=== PATIENT | female | born 1980 | race Two or more races ===

== ENCOUNTER 2021-05-04 08:38 | Emergency (ER) | payer SELFPAY ==
[~2021-05-04] VITALS: Ht 165.1 cm; Wt 90.7 kg
[2021-05-04 11:02] VITALS: BP 114/54
== END 2021-05-04 11:21 | disposition home or self-care (01) ==
LOC: ER 08:38
DX: S05.11XA Contusion of eyeball and orbital tissues, right eye, initial encounter (principal); W01.0XXA Fall on same level from slipping, tripping and stumbling without subsequent striking against object, initial encounter; Y93.89 Activity, other specified; Y92.89 Other specified places as the place of occurrence of the external cause; Y99.8 Other external cause status
CPT/HCPCS: 70450

== ENCOUNTER 2022-04-04 18:20 | Emergency (ER) | payer MEDICAID, OTHER ==
[~2022-04-04] VITALS: Ht 165.1 cm; Wt 90.9 kg
[2022-04-04 19:58] LABS: Basophils # (auto) 0.1 10 ^3/uL (0-0.2); Basophils % (auto) 1.3 % (0.0-2.0); Eosinophils # (auto) 0.1 10 ^3/uL (0-0.8); Eosinophils % (auto) 2.2 % (0.0-7.0); Hematocrit 42.3 % (36.0-46.0); Hemoglobin 14.6 g/dL (12.2-16.2); Lymphocytes # (auto) 2.2 10 ^3/uL (0.4-5.4); Lymphocytes % (auto) 39.3 % (10.0-50.0); Mean Corpuscular Hemoglobin 32.5 pg (28.0-32.0); Mean Corpuscular Hgb Conc. 34.4 g/dL (32.0-36.0); Mean Corpuscular Volume 94.5 fL (80.0-100.0); Monocytes # (auto) 0.7 10 ^3/uL (0-1.3); Monocytes % (auto) 11.9 % (0.0-12.0); Neutrophils # (auto) 2.5 10 ^3/uL (1.6-8.6); Neutrophils % (auto) 45.3 % (37.0-80.0); Nucleated Red Blood Cells % 0.2 %; Red Blood Cells 4.48 10^6/uL (4.0-5.20); Red Cell Distribution Width 12.3 % (11.8-14.3); White Blood Cell 5.6 10^3/uL (4.4-10.8)
[2022-04-04 20:06] LABS: INR 0.92 (0.9-1.15); Partial Thromboplastin Time 27.6 sec (24.6-33.4)
[2022-04-04 21:07] LABS: Calcium 9.4 mg/dL (8.5-10.1); Magnesium 2.5 mg/dL (1.6-2.6); Potassium 3.3 mmol/L (3.5-5.1)
[2022-04-04 21:12] LABS: BUN/Creatinine Ratio 12.1; Bilirubin, Total 0.7 mg/dL (0.2-1.0); Total Protein 7.7 g/dL (6.4-8.2)
[2022-04-05 02:48] VITALS: BP 131/74
== END 2022-04-05 02:56 | disposition home or self-care (01) ==
LOC: ER 18:23
DX: R07.89 Other chest pain (principal)
CPT/HCPCS: 36415; 71045; 80053; 83735; 83880; 84443; 84484; 85025; 85610; 85730; 93005

== ENCOUNTER 2022-10-12 18:37 | Emergency (ER) | payer MEDICAID ==
[~2022-10-12] VITALS: Ht 167.6 cm; Wt 93.2 kg
[2022-10-12 20:09] LABS: Urine Bacteria NONE SEEN /hpf (None Seen); Urine Blood Negative /uL (Negative); Urine Mucus FEW (None Seen); Urine Specific Gravity 1.027 (1.001-1.035); Urine WBC 4 /hpf (0 - 5)
[2022-10-12] MEDS ORDERED: KETOROLAC TROMETH 60MG/2ML VIAL IM ONE (23:45)
[2022-10-12] MEDS ORDERED: CYCL-837 PO (23:46)
[2022-10-12] MEDS ORDERED: IBUP800T27 PO (23:46)
[2022-10-13 01:47] VITALS: BP 133/64
== END 2022-10-13 02:52 | disposition home or self-care (01) ==
LOC: ER 18:41
DX: S39.012A Strain of muscle, fascia and tendon of lower back, initial encounter (principal); Z79.1 Long term (current) use of non-steroidal anti-inflammatories (NSAID); Z79.899 Other long term (current) drug therapy; X50.1XXA Overexertion from prolonged static or awkward postures, initial encounter; Y93.89 Activity, other specified; Y92.89 Other specified places as the place of occurrence of the external cause; Y99.8 Other external cause status
CPT/HCPCS: 72100; 81001; 96372; 99284; J1885

== ENCOUNTER 2024-09-04 17:30 | Inpatient (IN) | payer MEDICAID ==
[~2024-09-04] VITALS: Ht 165.1 cm; Wt 95.7 kg
[~2024-09-04 17:30] MED LIST: CYCL-837 PO; IBUP-1456 PO
[2024-09-04] MEDS: ACETAMINOPHEN 325 MG TAB PO ONE (18:19)
--- NOTE | 2024-09-04 18:29 | ED.PDOC ---
History of Present Illness HPI Comments 44-year-old female with no PMHx presents with a chief complaint of abnormal vaginal bleeding, fever, and abdominal pain x 1 month. Patient states that her pain is localized to her suprapubic region, non-radiating, and describes as cramping. Patient mentions that she has been having abnormal vaginal bleeding since 08/10/2024. Patient reports that she has an IUD and does not know if that is the cause of her bleeding. Patient mentions that she is passing large clots vaginally. Patient is also reporting flu-like symptoms and has a fever currently of 100.7F. Chief Complaint: Vaginal Bleed Time Seen by MD: 18:19 Primary Care Provider: [facility] Reviewed Notes: Medications, Allergies Allergies: Coded Allergies: NO KNOWN ALLERGIES (Unverified , 05/04/21) Home Meds Active Scripts Ibuprofen (Ibuprofen) 800 Mg Tab, 1 TAB PO TID PRN, #30 TAB 0 Refills Prov:MALLORY DOWELL 10/12/22 Cyclobenzaprine Hcl (Cyclobenzaprine Hcl) 5 Mg Tab, 1 TAB PO QPM PRN, #14 TAB 0 Refills Prov:MALLORY DOWELL 10/12/22 Information Source: Patient, Relative (Child) Mode of Arrival: Ambulatory Severity: Moderate Timing: Weeks Duration: Intermittent Prehospital treatment: None Past Medical History PAST MEDICAL HISTORY: Denies Surgical History: COMIC ARTIST History: No Pertinent COMIC ARTIST History Family History Family History: Unknown Social History Smoker: Non-Smoker Alcohol: Denies ETOH Use Drugs: Denies Drug Use Lives In: Home Constitutional: reports: fever; denies: chills, diaphoresis, fatigue, malaise, sweats, weakness, others EENTM: denies: blurred vision, double vision, ear bleeding, ear discharge, ear drainage, ear pain, ear ringing, eye pain, eye redness, hearing loss, mouth pain, mouth swelling, nasal discharge, nose bleeding, nose congestion, nose pain, photophobia, tearing, throat pain, throat swelling, voice changes, others Respiratory: denies: cough, hemoptysis, orthopnea, SOB at rest, shortness of breath, SOB with excertion, stridor, wheezing, others Cardiovascular: denies: chest pain, dizzy spells, diaphoresis, Dyspnea on exertion, edema, irregular heart beat, left arm pain, lightheadedness, palpitations, PND, syncope, others Gastrointestinal: reports: abdominal pain; denies: abdomen distended, blood streaked bowels, constipated, diarrhea, dysphagia, difficulty swallowing, hematemesis, melena, nausea, poor appetite, poor fluid intake, rectal bleeding, rectal pain, vomiting, others Genitourinary: reports: abnormal vagina bleeding; denies: burning, dyspareunia, dysuria, flank pain, frequency, hematuria, incontinence, pain, , vagina discharge, urgency, others Neurological: denies: dizziness, fainting, headache, left sided numbness, left sided weakness, numbness, paresthesia, pre-existing deficit, right sided numbness, right sided weakness, seizure, speech problems, tingling, tremors, weakness, others Musculoskeletal: denies: back pain, gout, joint pain, joint swelling, muscle pain, muscle stiffness, neck pain, others Integumetry: denies: bruises, change in color, change in hair/nails, dryness, laceration, lesions, lumps, rash, wounds, others Allergic/Immunocompromised: denies: Difficulty Healing, Frequent Infections, Hives, Itching, others Hematologic/Lymphatic: denies: anemia, blood clots, easy bleeding, easy bruising, swollen glands, others Endocrine: denies: excessive hunger, excessive sweating, excessive thirst, excessive urination, flushing, intolerance to cold, intolerance to heat, unexplained weight gain, unexplained weight loss, others Psychiatric: denies: anxiety, bipolar disorder, depression, hopeless, panic disorder, schizophrenia, sleepless, suicidal, others All Other Systems: Reviewed and Negative Physical Exam General Appearance: Moderate Distress, Normal HEENT: Normal ENT Inspection, Pharynx Normal, TMs Normal Neck: Full Range of Motion, Non-Tender, Normal, Normal Inspection Respiratory: Chest Non-Tender, Lungs Clear, No Accessory Muscle Use, No Respiratory Distress, Normal Breath Sounds Cardiovascular: No Edema, No JVD, No Murmur, No Gallop, Normal Peripheral Pulses, Regular Rate/Rhythm Breast Exam: Deferred Gastrointestinal: No Organomegaly, Non Tender, No Pulsatile Mass, Normal Bowel Sounds, Soft Genitalia: Deferred Pelvic: Deferred Rectal: Deferred Extremities: No calf tenderness, Normal capillary refill, Normal inspection, Normal range of motion, Non-tender, No pedal edema Musculoskeletal : Apperance: Normal Neurologic: Alert, mobile manager II-XII nml as Tested, No Motor Deficits, Normal Affect, Normal Mood, No Sensory Deficits Cerebellar Function: Normal Reflexes: Normal Skin: Dry, Normal Color, Warm Lymphatic: No Adenopathy Was a procedure done? Was a procedure done?: No Differential Dx Considerations may include: Differential diagnosis includes but not limited to: Symptomatic anemia, coagulation defect, fibroid uterus, UTI, influenza, pyelonephritis, sepsis and others X-Ray, Labs, Meds, VS Vital Signs Date Time Temp Pulse Resp B/P (MAP) Pulse Ox O2 Delivery O2 Flow Rate FiO2 09/04/24 18:19 100.7 09/04/24 17:46 100.7 111 16 115/67 (83) 96 Lab Test 09/04/24 18:47 09/04/24 17:43 Range/Units White Blood Count 8.3 4.4-10.8 10^3/uL Red Blood Count 2.90 L 4.0-5.20 10^6/uL Hemoglobin 8.3 L 12.2-16.2 g/dL Hematocrit 25.2 L 36.0-46.0 % Mean Corpuscular Volume 86.8 80.0-100.0 fL Mean Corpuscular Hemoglobin 28.8 28.0-32.0 pg Mean Corpuscular Hemoglobin Concent 33.1 32.0-36.0 g/dL Red Cell Distribution Width 14.3 11.8-14.3 % Platelet Count 295 140-450 10^3/uL Mean Platelet Volume 8.5 6.9-10.8 fL Neutrophils (%) (Auto) 69.8 37.0-80.0 % Lymphocytes (%) (Auto) 20.4 10.0-50.0 % Monocytes (%) (Auto) 9.3 0.0-12.0 % Eosinophils (%) (Auto) 0.2 0.0-7.0 % Basophils (%) (Auto) 0.3 0.0-2.0 % Neutrophils # (Auto) 5.8 1.6-8.6 10 ^3/uL Lymphocytes # (Auto) 1.7 0.4-5.4 10 ^3/uL Monocytes # (Auto) 0.8 0-1.3 10 ^3/uL Eosinophils # (Auto) 0 0-0.8 10 ^3/uL Basophils # (Auto) 0 0-0.2 10 ^3/uL Nucleated Red Blood Cells 0.0 % Beta HCG, Quantitative 1.0 L 1.5-4.2 mIU/mL Urine Color Colorless Yellow Urine Clarity Turbid H Clear Urine pH 6.0 5.0-9.0 Urine Specific [place] 1.011 1.001-1.035 Urine Protein Trace H Negative Urine Ketones 1+ H Negative Urine Blood 3+ H Negative /uL Urine Nitrite 2+ H Negative Urine Bilirubin Negative Negative Urine Urobilinogen Normal Negative mg/dL Urine Leukocyte Esterase 1+ Negative /uL Urine RBC 334 0 - 4 /hpf Urine WBC 17 0 - 5 /hpf Urine Squamous Epithelial Cells Few <5 /hpf Urine Bacteria Few H None Seen /hpf Urine Mucus Few None Seen Urine Glucose Normal Normal mg/dL Current Medications Medications (Trade) Dose Ordered Sig/Branden Route Start Time Stop Time Status Last Admin Acetaminophen (Tylenol Tablet) 650 mg ONCE ONCE PO 09/04/24 18:15 09/04/24 18:16 DC 09/04/24 18:19 Time of 1ST Reevaluation: 18:49 Reevaluation 1ST: Unchanged Time of 2ND Reevaluation: 20:38 Reevaluation 2ND: Unchanged Patient Education/Counseling: Diagnosis, Treatment, Prognosis Family Education/Counseling: No Family Present Departure 1 Departure Time of Disposition: 20:38 (will admit for UTI with fever, dysfunctional ut erine bleeding with symptomatic anemia) Impression: Primary Impression: Dysfunctional uterine bleeding Additional Impressions: Symptomatic anemia UTI (urinary tract infection) Disposition: ADMITTED INPATIENT Condition: Guarded Critical Care Note Critical Care Time?: No Stability Stability form required: No I personally scribed for LOIS ROWE MD ([email or web address]) on 09/04/24 at 18:29. Electronically submitted by Keenan Clemons ([email or web address]). LOIS ROWE MD Sep 04, 2024 18:29
[2024-09-04 18:35] LABS: Urine Bacteria FEW /hpf (None Seen); Urine Blood 3+ /uL (Negative); Urine Clarity Turbid (Clear); Urine Color Colorless (Yellow); Urine Mucus FEW (None Seen); Urine Protein, UAD TRACE (Negative); Urine Specific Gravity 1.011 (1.001-1.035); Urine Squamous Epithelial Cell FEW /hpf (<5); Urine Urobilinogen Normal (Negative); Urine WBC 17 /hpf (0 - 5)
[2024-09-04 19:10] LABS: Basophils # (auto) 0 10 ^3/uL (0-0.2); Basophils % (auto) 0.3 % (0.0-2.0); Eosinophils # (auto) 0 10 ^3/uL (0-0.8); Eosinophils % (auto) 0.2 % (0.0-7.0); Hematocrit 25.2 % (36.0-46.0); Hemoglobin 8.3 g/dL (12.2-16.2); Lymphocytes # (auto) 1.7 10 ^3/uL (0.4-5.4); Lymphocytes % (auto) 20.4 % (10.0-50.0); Mean Corpuscular Hemoglobin 28.8 pg (28.0-32.0); Mean Corpuscular Hgb Conc. 33.1 g/dL (32.0-36.0); Mean Corpuscular Volume 86.8 fL (80.0-100.0); Monocytes # (auto) 0.8 10 ^3/uL (0-1.3); Monocytes % (auto) 9.3 % (0.0-12.0); Neutrophils # (auto) 5.8 10 ^3/uL (1.6-8.6); Neutrophils % (auto) 69.8 % (37.0-80.0); Platelet Count (auto) 295 10^3/uL (140-450); Red Cell Distribution Width 14.3 % (11.8-14.3); White Blood Cell 8.3 10^3/uL (4.4-10.8)
[2024-09-04] MEDS ORDERED: cefTRIAXone 2GM/50ML D5W 50 ML IV ONE (20:45)
[2024-09-04] MEDS: SODIUM CHLORIDE 0.9% 1,000 ML IV ONE (21:35)
[2024-09-04] MEDS: cefTRIAXone 1GM/50ML D5W 50 ML IV ONE (21:37)
[2024-09-04 21:42] VITALS: PULSE 85; RESP 20; O2SAT 96
[2024-09-05] VITALS (11 sets, daily range): BP systolic 110–122; BP diastolic 49–64; PULSE 83–96; RESP 16–24; TEMP 97.7–99.7; O2SAT 95–100
[2024-09-05 01:23] LABS: COVID19 ANTIGEN SOFIA FIA NEGATIVE (NEGATIVE)
[2024-09-05 01:25] LABS: Rapid Influenza A Positive (Negative); Rapid Influenza B Negative (Negative)
[2024-09-05] MEDS: ACETAMINOPHEN 325 MG TAB PO PRN (04:55)
[2024-09-05] MEDS: OSELTAMIVIR 75 MG CAP PO ONE (05:17)
[2024-09-05] MEDS: SODIUM CHLORIDE 0.9% 1,000 ML IV SCH (05:19)
--- NOTE | 2024-09-05 07:08 | DVH ---
CLINICAL HISTORY: Abnormal uterine bleeding COMPARISON: None TECHNIQUE: Transabdominal grayscale sonographic imaging of the uterus and ovaries was performed, assi sted by color Doppler technique. Duplex Doppler ultrasound of both ovaries was also performed. Patien t refused transvaginal imaging. FINDINGS: The uterus measures 11.9 x 5.3 x 4.5 cm. There is heterogeneous echogenicity. Endometrial t hickness measures 0.3 cm, within normal limits. IUD abnormally positioned in the lower uterine segmen t. Cervical mass measures 6.5 x 5.2 x 4.2 cm, heterogeneously hypoechoic, with internal vascular kenneth w demonstrated. Right ovary measures 3.0 x 1.6 x 1.9 cm. Arterial and venous blood flow demonstrated. Left ovary is not visualized. IMPRESSION: 1. Heterogeneously hypoechoic mass in the cervix, suspicious for malignancy. Correlation with clinica l findings recommended. MRI may be helpful to further characterize. 2. Abnormally positioned IUD within the lower uterine segment/ cervix.
--- NOTE | 2024-09-05 09:04 | DVHINCON2 ---
DATE OF CONSULTATION: 09/05/2024 CHIEF COMPLAINT: Abnormal uterine bleeding, cervical mass. HISTORY OF PRESENT ILLNESS: The patient is a 44-year-old 4, para 4, admitted for abnormal uterine bleeding. The patient has been reporting heavy bleeding since 6 months ago. She states she had a Pap smear last month, which was normal. She has been bleeding heavy. Ultrasound reveals 11.9 x 5 x 4.5 cm uterus with some suspicious mass at the cervix. PAST MEDICAL HISTORY: None. PAST SURGICAL HISTORY: x 1. SOCIAL HISTORY: None. FAMILY HISTORY: None. OBSTETRIC AND GYNECOLOGIC HISTORY: Three vaginal deliveries, one section. REVIEW OF SYSTEMS: Consistent with HPI. PHYSICAL EXAMINATION: VITAL SIGNS: Stable, afebrile. HEENT: Within normal limits. CARDIOVASCULAR: Regular rate and rhythm. LUNGS: Clear to auscultation. BREASTS: Symmetrical. No masses. ABDOMEN: Soft, nontender. PELVIC: External genitalia within normal limits. Speculum exam reveals prolapsing myoma through the cervix. Uterus 11-week size. Adnexa nonpalpable. EXTREMITIES: No clubbing, cyanosis or edema. IMPRESSION: Abnormal uterine bleeding with anemia. Prolapsing myoma. PLAN: D and C, hysteroscopy, removal of myoma. The patient will need blood transfusion. The patient is consented for the procedure. We will proceed with D and C, hysteroscopy and blood transfusion. Informed consent obtained. Risks, complication of surgery including infection, failure rate, bleeding, PE, DVT, risk of anesthesia discussed with the patient. Options reviewed. All questions were answered. The patient fully understands. She wishes to proceed with planned procedure. DO MELECIO Horowitz TID: [id number] RECEIPT: [id number]
[2024-09-05 09:32] LABS: Basophils # (auto) 0 10 ^3/uL (0-0.2); Basophils % (auto) 0.3 % (0.0-2.0); Eosinophils # (auto) 0 10 ^3/uL (0-0.8); Hemoglobin 7.7 g/dL (12.2-16.2); Mean Corpuscular Hemoglobin 28.8 pg (28.0-32.0); Monocytes # (auto) 0.6 10 ^3/uL (0-1.3); Red Blood Cells 2.66 10^6/uL (4.0-5.20)
[2024-09-05 09:35] LABS: Eosinophils % (auto) 0.2 % (0.0-7.0); Hematocrit 23.1 % (36.0-46.0); Lymphocytes # (auto) 2.3 10 ^3/uL (0.4-5.4); Mean Corpuscular Hgb Conc. 33.3 g/dL (32.0-36.0); Mean Corpuscular Volume 86.7 fL (80.0-100.0); Monocytes % (auto) 11.6 % (0.0-12.0); Neutrophils # (auto) 2.3 10 ^3/uL (1.6-8.6); Neutrophils % (auto) 43.9 % (37.0-80.0); Nucleated Red Blood Cells % 0.1 %; Platelet Count (auto) 258 10^3/uL (140-450); Red Cell Distribution Width 14.2 % (11.8-14.3); White Blood Cell 5.3 10^3/uL (4.4-10.8)
--- NOTE | 2024-09-05 09:41 | DVHHPRES ---
History of Present Illness Resident Creating Document: NANCY DUMONT RESIDENT History of Present Illness Patient is a 44-year-old female with no significant past medical history came the ED with a chief complaint of abnormal vaginal bleeding for past 6 months. Patient reports that about 6-7 months ago she started to have vaginal bleeding after every menstrual cycle which would last for about 10-15 days and was irregular in pattern. Patient also reports since the last 2-3 months she has been passing blood clots. Patient reports to have copper containing IUD in place. Reports mild pelvic pain when she is bleeding and has intermittent dizziness. Patient has had 4 pregnancies and 4 children with 3 normal vaginal deliveries and 1 C section. Patient was sexually active and denies dyspareunia. Patient reports that her last Pap smear was this year and was normal. Patient seek medical attention previously with OBGYN and was told that she has a "fibroma". Past medical history: None Past surgical history: 1 Social history: Patient was with family and denies smoking, alcohol, drug use OBGYN: 4 pregnancies with 3 vaginal deliveries and 1 C section Home medications: None Review of Systems Review of Systems Reports mild pelvic pain and is currently having bleeding per vagina with clots Denies dysuria Denies dizziness, shortness of breath, palpitations. Allergies: Coded Allergies: NO KNOWN ALLERGIES (Unverified , 05/04/21) Medications Current Medications Medications Dose Ordered Sig/Branden Route Start Time Stop Time Status Last Admin Dose Admin Acetaminophen 650 mg Q6HPRN PRN PO 09/05/24 04:45 09/05/24 04:55 650 MG Ceftriaxone Sodium 50 ml @ 100 mls/hr DAILY@2200 IV 09/05/24 22:00 Oseltamivir Phosphate 75 mg Q12HR PO 09/05/24 17:00 09/10/24 16:59 UNV Sodium Chloride 1,000 ml @ 125 mls/hr Q8H IV 09/05/24 05:00 09/05/24 05:19 125 MLS/HR Exam Vital Signs Vital Signs Date Time Temp Pulse Resp B/P (MAP) Pulse Ox O2 Delivery O2 Flow Rate FiO2 09/05/24 08:00 81 09/05/24 07:30 99.1 24 110/54 (72) 98 99.1 09/05/24 07:30 Room Air* 0 21 Exam Physical Examination Constitutional: Patient was alert and oriented to time, place and person and does not appear to be in any acute distress Gen - mild conjunctival pallor, no icterus, no cyanosis, no clubbing, no LAD, no edema . Skin - Patients skin is warm and dry. HEENT - normocephalic, atraumatic, dry mucous membranes. Neck - full ROM, no LAD, no JVD Pulmonary - B/L vesicular breath sounds. no crackles , no wheezing cardiovascular - normal S1,S2 heard. no murmurs heard. peripheral pulses normal radial 2+, pedal 2+. GI/- soft abdomen with mild tenderness to palpation in the mid lower abdomen above pubic symphysis. No mass felt in the suprapubic area. no hepatospleenomegaly. Bowel sounds normoactive Neurological - Bilateral upper extremity strength 5/5, bilateral lower extremity strength 5/5, no facial droop, normal speech, no tremor, no sensory deficiets. Labs/Xrays Labs Test 09/05/24 00:07 09/04/24 20:49 09/04/24 18:47 09/04/24 17:43 Range/Units Influenza Type A Antigen Positive Negative Influenza Type B Antigen Negative Negative SARS-CoV-2 Antigen (Rapid) Negative NEGATIVE Lactic Acid Level 1.2 0.4-2.0 mmol/L White Blood Count 8.3 4.4-10.8 10^3/uL Red Blood Count 2.90 L 4.0-5.20 10^6/uL Hemoglobin 8.3 L 12.2-16.2 g/dL Hematocrit 25.2 L 36.0-46.0 % Mean Corpuscular Volume 86.8 80.0-100.0 fL Mean Corpuscular Hemoglobin 28.8 28.0-32.0 pg Mean Corpuscular Hemoglobin Concent 33.1 32.0-36.0 g/dL Red Cell Distribution Width 14.3 11.8-14.3 % Platelet Count 295 140-450 10^3/uL Mean Platelet Volume 8.5 6.9-10.8 fL Neutrophils (%) (Auto) 69.8 37.0-80.0 % Lymphocytes (%) (Auto) 20.4 10.0-50.0 % Monocytes (%) (Auto) 9.3 0.0-12.0 % Eosinophils (%) (Auto) 0.2 0.0-7.0 % Basophils (%) (Auto) 0.3 0.0-2.0 % Neutrophils # (Auto) 5.8 1.6-8.6 10 ^3/uL Lymphocytes # (Auto) 1.7 0.4-5.4 10 ^3/uL Monocytes # (Auto) 0.8 0-1.3 10 ^3/uL Eosinophils # (Auto) 0 0-0.8 10 ^3/uL Basophils # (Auto) 0 0-0.2 10 ^3/uL Nucleated Red Blood Cells 0.0 % Beta HCG, Quantitative 1.0 L 1.5-4.2 mIU/mL Urine Color Colorless Yellow Urine Clarity Turbid H Clear Urine pH 6.0 5.0-9.0 Urine Specific [place] 1.011 1.001-1.035 Urine Protein Trace H Negative Urine Ketones 1+ H Negative Urine Blood 3+ H Negative /uL Urine Nitrite 2+ H Negative Urine Bilirubin Negative Negative Urine Urobilinogen Normal Negative mg/dL Urine Leukocyte Esterase 1+ Negative /uL Urine RBC 334 0 - 4 /hpf Urine WBC 17 0 - 5 /hpf Urine Squamous Epithelial Cells Few <5 /hpf Urine Bacteria Few H None Seen /hpf Urine Mucus Few None Seen Urine Glucose Normal Normal mg/dL Assessment/Plan Assessment/Plan # Abnormal uterine bleed # ? Uterine Fibroid # ? Cervical mass # normochromic normocytic anemia - pelvic ultrasound shows 1. uterus measures 11.9 x 5.3 x 4.5 cm. There is heterogeneous echogenicity. Endometrial thickness measures 0.3 cm, within normal limits. IUD abnormally positioned in the lower uterine segment. Cervical mass measures 6.5 x 5.2 x 4.2 cm, heterogeneously hypoechoic, with internal vascular flow demonstrated. 2. Right ovary measures 3.0 x 1.6 x 1.9 cm. Arterial and venous blood flow demonstrated. left ovary is not visualized. 3. Abnormally positioned IUD within the lower uterine segment/ cervix. - OBGYN consulted - PT PTT pending - monitor H&H # urinary tract infection likely acute cystitis # SIRS positive - UA shows 2+ nitrate, +LE, elevated WBCs and few bacteria - urine bacteria culture pending - blood culture pending - on ceftriaxone 1 g IV daily # influenza infection - no acute respiratory distress - on oseltamivir 75 mg q.12 hours p.o. Goals of care discussed with the patient for over 25 minutes. Full code Plan discussed with Dr. Fisher Plan discussed with: Patient My Orders Orders - NANCY DUMONT Procedure Category Date Status Time Acetaminophen Tablet PHA 09/05/24 In Process (Tylenol Tablet) 04:45 Admit ADMIT 09/05/24 Transmitted 04:59 Complete Blood Count LAB 09/05/24 Logged 04:59 Comprehensive LAB 09/05/24 Logged Metabolic Panel 04:59 Urine Bacterial JOANNE 09/05/24 Logged Culture 04:59 Drug Screen LAB 09/05/24 Logged 04:59 PTPTT LAB 09/05/24 Logged 04:59 Pelvic US 09/05/24 Resulted 04:59 Ceftriaxone 1gm/50ml PHA 09/05/24 In Process D5w (Rocephin) 22:00 Test, Urine LAB 09/05/24 Logged 04:59 Oseltamivir 75mg PHA 09/05/24 Pending Capsule (Tamiflu 75mg 17:00 Sodium Chloride 0.9% PHA 09/05/24 In Process 05:00 * Electric[employer] Consultation CONS 09/05/24 Transmitted 06:53 Regular Diet DIET 09/05/24 Transmitted Breakfast Date of Service: Sep 05, 2024 Billing Provider: OKSANA FISHER MD Common Visit Codes: [id number] INP/OBS CARE (HIGH) NANCY DUMONT RESIDENT Sep 05, 2024 09:41 OKSANA FISHER MD Sep 05, 2024 11:27
[2024-09-05 09:44] LABS: INR 1.06 (0.9-1.15); Partial Thromboplastin Time 27.6 SEC (24.5-34.5); Prothrombin Time 11.2 sec (9.3-11.8)
[2024-09-05 09:50] LABS: Alanine Aminotransferase 37 U/L (7-40); Alkaline Phosphatase 52 U/L (46-116); Anion Gap 8 (5-15); BUN/Creatinine Ratio 7.4 (10.0-20.0); Calcium 8.7 mg/dL (8.7-10.4); Carbon Dioxide 26 mmol/L (20-31); Glucose 99 mg/dL (74-106); Sodium 143 mmol/L (136-145)
[2024-09-05 09:51] LABS: Albumin 3.9 g/dL (3.2-4.8); Aspartate Aminotransferase 26 U/L (13-40); Bilirubin, Total 0.4 mg/dL (0.2-1.0)
[2024-09-05 10:01] LABS: Blood Urea Nitrogen 5 mg/dL (9-23); Chloride 109 mmol/L (98-107); Potassium 3.1 mmol/L (3.5-5.1)
[2024-09-05] MEDS: POTASSIUM EFFERVESENT TAB 25 MEQ PO ONE ×2 (15:41→21:30)
[2024-09-05] MEDS: OSELTAMIVIR 75 MG CAP PO SCH (17:41)
--- NOTE | 2024-09-05 18:02 | DVHPNRES ---
Progress Note Date Seen: Sep 05, 2024 Resident Creating Document: GEORGETTE KERN RESIDENT Medical Necessity Reason Pt with a Central, PICC or Fol: No Subjective Review of Systems 44-year-old female patient with no significant past medical history who presented to the emergency department with complaints of abnormal vaginal bleeding persisting for the past 6 months. She reports that about 7 months ago she began experiencing vaginal bleeding after each menstrual cycle lasting approximately 10 days to 15 days and described as irregular in pattern. Over the past 2-3 months she noted passage of blood clots during the episodes. The patient has a culprit containing intrauterine device in place. She despite male pelvic pain during bleeding episodes and intermittent dizziness. She denies dysuria, dyspareunia or other symptoms. She has had 4 pregnancies including 3 vaginal deliveries and 1 section. She reports being sexually active and denies any history of smoking alcohol or drug abuse. Patient underwent a normal Pap smear earlier this year and reports that her OBGYN previously mentioned the pieces of fibroma (likely a uterine myoma). OBGYN team has evaluated the patient, the schedule a hysteroscopy to evaluate the uterine cavity and plan for a dilation and curettage , and surgical removal of the myoma identified during prior evaluations. Patient just received 1 blood transfusion and no reactions were noted. Patient was tested for influenza, being positive, patient was started on oseltamivir 75 mg p.o. b.i.d. afterwards. Constitutional: yes: mild fever, Chills, Sweats, Weakness, Malaise, Other Eyes: No: Pain, Vision change, Conjunctivae inflammation, Eyelid inflammation, Other, Redness ENT: No: Ear pain, Ear discharge, Nose pain, Nose discharge, Nose congestion, Mouth pain, Mouth swelling, Throat pain, Throat swelling, Other Respiratory: No Wheezing, Hemoptysis, Pleuritic Pain, Sputum, Wheezing, Other Cardiovascular: No: Chest Pain, Palpitations, Orthopnea, Paroxysmal Noc. Dyspnea, Edema, Lt Headedness, Other Gastrointestinal: No: Nausea, Vomiting, Abdominal Pain, Diarrhea, Constipation, Melena, Hematochezia, Other Musculoskeletal: No: other, neck pain, shoulder pain, arm pain, back pain, hand pain, leg pain, foot pain Neurological:; No: Weakness, Numbness, Incoordination, Change in speech, Confusion, Seizures Patient reports: No new complaints Changes from previous H/P or p: No Changes Objective vital signs Vital Sign Date Time Temp Pulse Resp B/P (MAP) Pulse Ox O2 Delivery O2 Flow Rate FiO2 09/05/24 17:00 99.6 83 18 120/63 (82) 100 99.6 09/05/24 13:59 Room Air* 0 21 Total Intake and Output 09/04/24 09/04/24 09/05/24 15:00 23:00 07:00 Intake Total 1000 ml 50 ml Balance 1000 ml 50 ml medications Current Medications Medications Dose Ordered Sig/Branden Route Start Time Stop Time Status Last Admin Dose Admin Acetaminophen 650 mg Q6HPRN PRN PO 09/05/24 04:45 09/05/24 04:55 650 MG Ceftriaxone Sodium 50 ml @ 100 mls/hr DAILY@2200 IV 09/05/24 22:00 Oseltamivir Phosphate 75 mg Q12HR PO 09/05/24 17:00 09/10/24 16:59 Sodium Chloride 1,000 ml @ 125 mls/hr Q8H IV 09/05/24 05:00 09/05/24 15:42 125 MLS/HR Examination Examination General Appearance: Alert, Oriented X3, Cooperative, No acute distress Respiratory: Clear to auscultation, Normal air movement Cardiovascular: Regular rate, Normal S1, Normal S2 Abdominal: Normal bowel sounds Extremities: No cyanosis, No edema, Normal pulses, No tenderness/swelling Skin: No rashes, No breakdown Neuro: Normal gait, Normal speech, Strength at 5/5 X4 ext, Normal tone, Sensation intact, Cranial nerves 3-12 NL, Reflexes 2+ Psych/Mental Status: Mental status NL, Mood NL laboratory and microbiology Laboratory Tests 09/05/24 08:56 Test 09/05/24 08:56 Range/Units Serum Glucose 99 74-106 mg/dL Problem List/Assessment/Plan Problem List/Assessment/Plan # Abnormal uterine bleed likely due to uterine myoma - uterus measures 11.9 x 5.3 x 4.5 cm. There is heterogeneous echogenicity. Endometrial thickness measures 0.3 cm - Abnormally positioned IUD within the lower uterine segment/ cervix. - Right ovary measures 3.0 x 1.6 x 1.9 cm. - OBGYN on board - Surgical intervention, pending # normochromic normocytic anemia Hb:7.7 - pelvic ultrasound shows - 1 package of red blood cells were trasfused. - OBGYN consulted - monitor H&H # urinary tract infection likely acute cystitis # SIRS positive - urine bacteria culture pending - blood culture pending - on ceftriaxone 1 g IV daily # influenza infection - Oseltamivir 75 mg PO BID #Hypokalemia -potassium p.o. effervescent 50 MEQ # type 2 obesity, BMI 35.1 -Lifestyle modification counseling and dietary habits counseling Case discussed with Goals of care discussed with the patient for 31 minutes. code status: Full code Plan discussed with: Patient, Son CC Plasma Assessment Blood Product Administration S: [id number] Date of Service: Sep 05, 2024 Billing Provider: OTILIO NOVAK MD Common Visit Codes: [id number] INP/OBS CARE(HIGH) GEORGETTE KERN RESIDENT Sep 05, 2024 18:02 OTILIO NOVAK MD Sep 05, 2024 23:43
[2024-09-05 19:01] LABS: Hemoglobin 9.9 g/dL (12.2-16.2)
[2024-09-05 19:16] LABS: Potassium 3.3 mmol/L (3.5-5.1)
[2024-09-05] MEDS: cefTRIAXone 1GM/50ML D5W 50 ML IV SCH (21:30)
[2024-09-06 01:00] VITALS: BP 103/57; PULSE 83; RESP 17; TEMP 98.1; O2SAT 97
[2024-09-06 05:00] VITALS: BP 108/44; PULSE 76; RESP 16; TEMP 98.2; O2SAT 99
--- NOTE | 2024-09-06 07:16 | DVHPN2 ---
Chief Complaints Patient reports: No new complaints Nursing reports: No new complaints Objective Vitals Vital Signs Date Time Temp Pulse Resp B/P (MAP) Pulse Ox O2 Delivery O2 Flow Rate FiO2 09/06/24 05:00 98.2 76 16 108/44 (65) 99 98.2 09/05/24 20:00 Room Air* 0 21 Medications Current Medications Medications (Trade) Dose Ordered Sig/Branden Route PRN Reason Start Time Stop Time Status Last Admin Ceftriaxone Sodium 50 ml @ 100 mls/hr DAILY@2200 IV 09/05/24 22:00 09/05/24 21:30 Oseltamivir Phosphate (Tamiflu 75MG Capsule) 75 mg Q12HR PO 09/05/24 17:00 09/10/24 16:59 09/05/24 21:30 Studies Test 09/06/24 06:11 Range/Units Serum Glucose Pending Ass/Plan Assessment AUB DUE TO PROLAPSING MYOMA INFLUENZA A Plan WILL HOLD OFF SURGERY FOR NOW BC OF INFLUNZA A WILL SCHED PT FOR SURGERY IN COUPLE OF WEEKS ARIANNA THOMPSON DO Sep 06, 2024 07:16
[2024-09-06 07:26] LABS: Basophils # (auto) 0 10 ^3/uL (0-0.2); Basophils % (auto) 0.3 % (0.0-2.0); Eosinophils # (auto) 0.1 10 ^3/uL (0-0.8); Eosinophils % (auto) 2.4 % (0.0-7.0); Hematocrit 26.3 % (36.0-46.0); Hemoglobin 8.9 g/dL (12.2-16.2); Lymphocytes # (auto) 2.4 10 ^3/uL (0.4-5.4); Lymphocytes % (auto) 49.4 % (10.0-50.0); Mean Corpuscular Hemoglobin 29.5 pg (28.0-32.0); Mean Corpuscular Hgb Conc. 33.8 g/dL (32.0-36.0); Mean Corpuscular Volume 87.1 fL (80.0-100.0); Monocytes # (auto) 0.4 10 ^3/uL (0-1.3); Monocytes % (auto) 8.8 % (0.0-12.0); Neutrophils # (auto) 1.9 10 ^3/uL (1.6-8.6); Neutrophils % (auto) 39.1 % (37.0-80.0); Nucleated Red Blood Cells % 0.1 %; Platelet Count (auto) 259 10^3/uL (140-450); Red Blood Cells 3.02 10^6/uL (4.0-5.20)
[2024-09-06 07:44] LABS: Anion Gap 7 (5-15); Carbon Dioxide 27 mmol/L (20-31); Sodium 144 mmol/L (136-145)
[2024-09-06] MEDS ORDERED: FER325T PO (07:45)
[2024-09-06] MEDS ORDERED: TAMIFLU PO (07:45)
[2024-09-06 07:49] LABS: Glucose 94 mg/dL (74-106)
[2024-09-06 07:56] LABS: BUN/Creatinine Ratio 7.4 (10.0-20.0); Blood Urea Nitrogen < 5 mg/dL (9-23); Calcium 8.4 mg/dL (8.7-10.4); Chloride 110 mmol/L (98-107); Potassium 3.4 mmol/L (3.5-5.1)
[2024-09-06 08:47] VITALS: BP 122/52; PULSE 86; RESP 16; TEMP 98.2; O2SAT 98
[2024-09-06] MEDS: POTASSIUM EFFERVESENT TAB 25 MEQ PO ONE (09:20)
[2024-09-06 13:00] VITALS: BP 115/54; PULSE 80; RESP 18; TEMP 97.4; O2SAT 97
[2024-09-06] MEDS ORDERED: CEPH500C PO (13:40)
[2024-09-06 14:54] VITALS: TEMP 36.3
--- NOTE | 2024-09-06 18:43 | DVHDSRES ---
Discharge Summary Date of Admission Resident Creating Document: GEORGETTE KERN RESIDENT Sep 05, 2024 at 04:59 Date of Discharge: Sep 06, 2024 Admitting Diagnosis Abnormal vaginal bleeding Labs/Diagnostic Data: Laboratory Results Test 09/06/24 06:11 09/05/24 18:48 09/05/24 08:56 09/05/24 00:07 White Blood Count 5.0 10^3/uL (4.4-10.8) Red Blood Count 3.02 10^6/uL (4.0-5.20) Hemoglobin 8.9 g/dL (12.2-16.2) Hematocrit 26.3 % (36.0-46.0) Mean Corpuscular Volume 87.1 fL (80.0-100.0) Mean Corpuscular Hemoglobin 29.5 pg (28.0-32.0) Mean Corpuscular Hemoglobin Concent 33.8 g/dL (32.0-36.0) Red Cell Distribution Width 14.0 % (11.8-14.3) Platelet Count 259 10^3/uL (140-450) Mean Platelet Volume 8.6 fL (6.9-10.8) Neutrophils (%) (Auto) 39.1 % (37.0-80.0) Lymphocytes (%) (Auto) 49.4 % (10.0-50.0) Monocytes (%) (Auto) 8.8 % (0.0-12.0) Eosinophils (%) (Auto) 2.4 % (0.0-7.0) Basophils (%) (Auto) 0.3 % (0.0-2.0) Neutrophils # (Auto) 1.9 10 ^3/uL (1.6-8.6) Lymphocytes # (Auto) 2.4 10 ^3/uL (0.4-5.4) Monocytes # (Auto) 0.4 10 ^3/uL (0-1.3) Eosinophils # (Auto) 0.1 10 ^3/uL (0-0.8) Basophils # (Auto) 0 10 ^3/uL (0-0.2) Nucleated Red Blood Cells 0.1 % Sodium Level 144 mmol/L (136-145) Potassium Level 3.4 mmol/L (3.5-5.1) Chloride Level 110 mmol/L (98-107) Carbon Dioxide Level 27 mmol/L (20-31) Anion Gap 7 (5-15) Blood Urea Nitrogen < 5 mg/dL (9-23) Creatinine 0.68 mg/dL (0.550-1.02) Glomerular Filtration Rate Calc 111 mL/min (>90) BUN/Creatinine Ratio 7.4 (10.0-20.0) Serum Glucose 94 mg/dL (74-106) Calcium Level 8.4 mg/dL (8.7-10.4) Magnesium Level 2.0 mg/dL (1.6-2.6) Prothrombin Time 11.2 sec (9.3-11.8) Prothrombin Time INR 1.06 (0.9-1.15) Activated Partial Thromboplast Time 27.6 SEC (24.5-34.5) Total Bilirubin 0.4 mg/dL (0.2-1.0) Aspartate Amino Transferase (AST) 26 U/L (13-40) Alanine Aminotransferase (ALT) 37 U/L (7-40) Alkaline Phosphatase 52 U/L (46-116) Total Protein 6.0 g/dL (5.7-8.2) Albumin 3.9 g/dL (3.2-4.8) Influenza Type A Antigen Positive (Negative) Influenza Type B Antigen Negative (Negative) SARS-CoV-2 Antigen (Rapid) Negative (NEGATIVE) Test 09/04/24 20:49 09/04/24 18:47 09/04/24 17:43 Lactic Acid Level 1.2 mmol/L (0.4-2.0) Beta HCG, Quantitative 1.0 mIU/mL (1.5-4.2) Urine Color Colorless (Yellow) Urine Clarity Turbid (Clear) Urine pH 6.0 (5.0-9.0) Urine Specific [employer] [place] 1.011 (1.001-1.035) Urine Protein Trace (Negative) Urine Ketones 1+ (Negative) Urine Blood 3+ /uL (Negative) Urine Nitrite 2+ (Negative) Urine Bilirubin Negative (Negative) Urine Urobilinogen Normal mg/dL (Negative) Urine Leukocyte Esterase 1+ /uL (Negative) Urine RBC 334 /hpf (0 - 4) Urine WBC 17 /hpf (0 - 5) Urine Squamous Epithelial Cells Few /hpf (<5) Urine Bacteria Few /hpf (None Seen) Urine Mucus Few (None Seen) Urine Glucose Normal mg/dL (Normal) Other Laboratory Tests 09/06/24 06:11 Brief Hx & Hospital Course: Reason for Admission: Abnormal vaginal bleeding persisting for six months, associated with clot passage, pelvic pain, and intermittent dizziness. History of Present Illness: The patient is a 44-year-old female with no significant past medical history who presented to the emergency department with complaints of abnormal vaginal bleeding persisting for approximately six months. The bleeding began about seven months ago and occurred irregularly after each menstrual cycle, lasting 1014 days. Over the past 23 months, the patient reported the passage of blood clots during bleeding episodes. Symptoms were accompanied by intermittent dizziness and pelvic pain but no dysuria, dyspareunia, or additional symptoms. She has had four pregnancies (three vaginal deliveries and one section). She underwent a normal Pap smear earlier this year, but her OBGYN had previously noted uterine myomas (fibroids). OBGYN evaluation during this admission included scheduling a hysteroscopy to evaluate the uterine cavity and planning for dilation and curettage , as well as surgical removal of the myoma. The patient required a blood transfusion due to anemia related to blood loss; no transfusion reactions were noted. She also tested positive for influenza and was started on oseltamivir 75 mg orally twice daily for which hysteroscopy, D&C, and surgical intervention for the fibroid were planned as outpatient procedures. Disposition: The patient is discharged in stable condition. Follow-Up Plan: - OBGYN Follow-Up: Hysteroscopy, D&C, and fibroid removal as scheduled. Case discussed with Dr. Crawford Goals of care discussed with the patient for 23 minutes. Consults/Reason for consult OBGYN: [facility] Operations or Procedures [place] [address] Ph: [phone] DIAGNOSTIC IMAGING Diagnostic Imaging Report : [id number] Signed PATIENT: LEXIS MCKEON ACCT: [id number] UNIT: [id number] : 1980 LOC: OVERFLOW ROOM / BED: [address] [place] [address] / A AGE / SEX: 44 / F ADM STATUS: ADM IN SERVICE 0459 ORDERING PHYSICIAN: NANCY DUMONT RESIDENT PROCEDURE(s): PELUS - PELVIC REASON: Abnormal uterine bleeding ORDER NUMBER(s): [id number], ACCESSION NUMBER(s): [id number] CLINICAL HISTORY: Abnormal uterine bleeding COMPARISON: None TECHNIQUE: Transabdominal grayscale sonographic imaging of the uterus and ovaries was performed, assisted by color Doppler technique. Duplex Doppler ultrasound of both ovaries was also performed. Patient refused transvaginal imaging. FINDINGS: The uterus measures 11.9 x 5.3 x 4.5 cm. There is heterogeneous echogenicity. Endometrial thickness measures 0.3 cm, within normal limits. IUD abnormally positioned in the lower uterine segment. Cervical mass measures 6.5 x 5.2 x 4.2 cm, heterogeneously hypoechoic, with internal vascular flow demonstrated. Right ovary measures 3.0 x 1.6 x 1.9 cm. Arterial and venous blood flow demonstrated. Left ovary is not visualized. IMPRESSION: 1. Heterogeneously hypoechoic mass in the cervix, suspicious for malignancy. Correlation with clinical findings recommended. MRI may be helpful to further characterize. 2. Abnormally positioned IUD within the lower uterine segment/ cervix. ATED BY: OC DOWNING DO DICTATED DATE/TIME: 09/05/24704 SIGNED BY: OC DOWNING DO SIGNED DATE/TIME: 09/05/24704 CC: Condition at Discharge: Fair Final Diagnosis/Problems List # Abnormal uterine bleed likely due to uterine myoma [place], pending # normocytic normochromic anemia Hb:7.7 # urinary tract infection likely acute cystitis # Upper respiratory infection due to influenza infection #Hypokalemia # type 2 obesity, BMI 35.1 Discharge Disposition: Home SNF Discharge Will this Physician continue t: No Discharge Instruct/Medications Diet: Cardiac 2g Na,low cholest Activity: No Restrictions, As Tolerated Follow Up/Referral: follow up with OBGYN in 2 weeks follow up with PCP within 2 weeks Medications: script to pharmacy Care Plan: discussed with Dr Crawford 40 Discharge Statement: "Patient was advised to return to the ER or call 911 if any headaches, dizziness, shortness of breath, chest pain, abdominal pain, bleeding, fevers, or worsening of medical condition. Patient was counseled about treatment plan, medications, possible side effects, patientverbalized understanding. All questions were answered to the best of my ability. This discharge took greater then 30 minutes in planning, reviewing documentation, counseling the patient, and discussing with other team members." ASSESSMENT ASSESSMENT Assessment Abnormal uterine bleeding viral pneumonia due to influenza Date of Service: Sep 06, 2024 Billing Provider: STEPHANIE CRAWFORD MD Common Visit Codes: 63161-YVD/OBS DISCH DAY >30min GEORGETTE KERN RESIDENT Sep 06, 2024 18:43 STEPHANIE CRAWFORD MD Sep 06, 2024 20:04
== END 2024-09-06 15:30 | disposition home or self-care (01) | DRG 532 ==
LOC: ER 17:30 → OVERFLOW 09-05 04:59 → EAST 09-05 13:58
PROVIDERS: ADMIT Student in an Organized Health Care Education/Training Program; ATTEND Emergency Medicine
PROC: 30233N1 Transfusion of Nonautologous Red Blood Cells into Peripheral Vein, Percutaneous Approach (ICD-10-PCS; principal; 2024-09-05)
DX: D25.9 Leiomyoma of uterus, unspecified (principal); J10.08 Influenza due to other identified influenza virus with other specified pneumonia; J12.9 Viral pneumonia, unspecified; D62 Acute posthemorrhagic anemia; N30.01 Acute cystitis with hematuria; Z20.822 Contact with and (suspected) exposure to COVID-19; E87.6 Hypokalemia; E66.812 Obesity, class 2; Z68.35 Body mass index [BMI] 35.0-35.9, adult; Z79.899 Other long term (current) drug therapy
CPT/HCPCS: 36415; 76856; 80048; 80053; 81001; 83605; 83735; 84132; 84702; 85014; 85018; 85025; 85610; 85730; 86850; 86900; 86901; 86920; 87040; 87086; 87426; 87804; G0378

== ENCOUNTER 2024-09-18 19:21 | Emergency (ER) | payer MEDICAID ==
[~2024-09-18] VITALS: Ht 165.1 cm; Wt 95.6 kg
[~2024-09-18 19:21] MED LIST changes: +CEPH500C PO; +FER325T PO; +TAMIFLU PO
[2024-09-18 20:28] LABS: Basophils # (auto) 0 10 ^3/uL (0-0.2); Basophils % (auto) 0.5 % (0.0-2.0); Eosinophils # (auto) 0.1 10 ^3/uL (0-0.8); Eosinophils % (auto) 1.7 % (0.0-7.0); Hematocrit 25.6 % (36.0-46.0); Hemoglobin 8.3 g/dL (12.2-16.2); Lymphocytes # (auto) 3.3 10 ^3/uL (0.4-5.4); Lymphocytes % (auto) 40.5 % (10.0-50.0); Mean Corpuscular Hemoglobin 30.6 pg (28.0-32.0); Mean Corpuscular Hgb Conc. 32.4 g/dL (32.0-36.0); Mean Corpuscular Volume 94.4 fL (80.0-100.0); Monocytes # (auto) 0.5 10 ^3/uL (0-1.3); Monocytes % (auto) 5.9 % (0.0-12.0); Neutrophils # (auto) 4.2 10 ^3/uL (1.6-8.6); Neutrophils % (auto) 51.4 % (37.0-80.0); Nucleated Red Blood Cells % 0.2 %; Platelet Count (auto) 313 10^3/uL (140-450); Red Blood Cells 2.71 10^6/uL (4.0-5.20); Red Cell Distribution Width 19.7 % (11.8-14.3); White Blood Cell 8.3 10^3/uL (4.4-10.8)
[2024-09-18 20:59] LABS: Albumin 4.2 g/dL (3.2-4.8); Alkaline Phosphatase 53 U/L (46-116); Anion Gap 7 (5-15); Aspartate Aminotransferase 21 U/L (13-40); BUN/Creatinine Ratio 11.2 (10.0-20.0); Blood Urea Nitrogen 12 mg/dL (9-23); Calcium 9.3 mg/dL (8.7-10.4); Carbon Dioxide 27 mmol/L (20-31); Potassium 3.5 mmol/L (3.5-5.1); Sodium 143 mmol/L (136-145)
[2024-09-18 21:00] LABS: Alanine Aminotransferase 44 U/L (7-40); Bilirubin, Total 0.3 mg/dL (0.2-1.0); Chloride 109 mmol/L (98-107); Glucose 140 mg/dL (74-106); Total Protein 6.4 g/dL (5.7-8.2)
--- NOTE | 2024-09-18 21:16 | DVH ---
EXAM: US PELVIC CLINICAL HISTORY: Vaginal Bleeding, Pelvic pain, organ prolapse TECHNIQUE: Transabdominal and transvaginal ultrasound of the pelvis with color Doppler flow as clinic ally indicated. COMPARISON: US PELVIC on DOS: 09/05/24 Findings: Same-day quantitative beta-hCG is not available. Uterus measures 10.3x 4.8 x 5.5 cm in size with relatively homogeneous echotexture and normal contour s. 4.4 x 3.8 x 4.9 cm hyperechoic, vascular lesion along the lower uterine segment/cervix. Endometrial thickness measures 0.6 cm with smooth contour. Bilateral ovaries not visualized. No free fluid in the cul-de-sac. Impression: 1. 4.9 cm vascular lesion in the lower uterine segment/cervix. Recommend direct visualization and con trast enhanced MRI for further evaluation. 2. Bilateral ovaries not visualized.
--- NOTE | 2024-09-18 21:47 | ED.PDOC ---
REIMBURSEMENT ANALYST HPI Comments 44y F who presents to the ED for chief complaint of vaginal bleeding. Pt states she has been having vaginal bleeding since 08/24. Pt states 3 days prior, she started to have lower pelvic pain and cramping that has gotten progressively worse. Pt states she has also started to pass blood clots and states she feels something is coming out of her vagina especially when she coughs. Pt in the ED, states the pain is 10/10, constant, with no associated exacerbating or relieving factors. Pt last normal menstrual cycle was 08/10. Pt daughter states she was hospitalized for similar symptoms 2 weeks prior and told she has fibroids but states she has not had surgery for removal of her fibroids. Pt otherwise denies any other symptoms at this time. 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 She has a history of uterine fibroids and was supposed to receive operative treatment however she developed the flu. Chief Complaint: Vaginal Bleed Time Seen by MD: 21:40 Reviewed Notes: Nurses Notes Allergies: Coded Allergies: NO KNOWN ALLERGIES (Unverified , 05/04/21) Home Meds Active Scripts Cephalexin Monohydrate (Cephalexin) 500 Mg Cap, 500 MG PO TID for 5 Days, #15 CAP Prov:SHEILA GLASS RESIDENT 09/06/24 Ferrous Sulfate (FERROUS SULFATE) 325 Mg Tb, 325 MG PO DAILY for 30 Days, #30 TAB 1 Refill Prov:SHEILA GLASS RESIDENT 09/06/24 Oseltamivir Phosphate (Tamiflu) 75 Mg Cap, 75 MG PO BID for 4 Days, #8 CAP Prov:SHEILA GLASS RESIDENT 09/06/24 Ibuprofen (Ibuprofen) 800 Mg Tab, 1 TAB PO TID PRN, #30 TAB 0 Refills Prov:MALLORY DOWELL 10/12/22 Cyclobenzaprine Hcl (Cyclobenzaprine Hcl) 5 Mg Tab, 1 TAB PO QPM PRN, #14 TAB 0 Refills Prov:MALLORY DOWELL 10/12/22 Information Source: Patient, Relative Mode of Arrival: Ambulatory Brought in by: daughter Vital Signs Vital Signs Date Time Temp Pulse Resp B/P (MAP) Pulse Ox O2 Delivery O2 Flow Rate FiO2 09/18/24 23:25 98 19 98 Room Air* 0 21 09/18/24 23:25 98.2 130/84 (99) 98.2 Physical Exam General: Awake, alert and oriented. No acute distress. Skin: Skin in warm, dry and intact. Appropriate color for ethnicity. Nailbeds pink with no cyanosis. HEENT: The head is normocephalic and atraumatic. Conjunctivae are clear without exudates or hemorrhage. Sclera is non-icteric. EOM are intact. No signs of nystagmus. Eyelids are normal in appearance without swelling or lesions. Oral mucosa is pink and moist Neck: The neck is supple with normal range of motion. No JVD. Cardiac: Heart rate and rhythm are normal. No murmurs, gallops, or rubs are auscultated. Respiratory: No signs of respiratory distress. Lung sounds are clear in all lobes bilaterally without rales, ronchi, or wheezes. Abdominal: Abdomen is soft, non-tender without distention. Bowel sounds are pre sent and normoactive in all four quadrants. : External vagina within normal limits. Internal: Scant vaginal bleeding, no visualized prolapse organ or foreign body. Extremities: Upper and lower extremities are atraumatic in appearance without deformity or edema. Neurological: The patient is awake, alert and oriented to person, place, and time with normal speech. Speech is clear. There is no facial asymmetry. Psychiatric: Appropriate mood and affect. Good judgement and insight. No visual or auditory hallucinations. Review of Systems: As stated in HPI Past Medical History PAST MEDICAL HISTORY: Denies Surgical History: EDITORIAL ASSISTANT History: No Pertinent EDITORIAL ASSISTANT History Family History Family History: Unknown Social History Smoker: Non-Smoker Alcohol: Denies ETOH Use Drugs: Denies Drug Use Lives In: Home Was a procedure done? Was a procedure done?: No Vital Signs Vital Signs Date Time Temp Pulse Resp B/P (MAP) Pulse Ox O2 Delivery O2 Flow Rate FiO2 09/18/24 23:25 98 19 98 Room Air* 0 21 09/18/24 23:25 98.2 130/84 (99) 98.2 Differential Diagnosis (EDITORIAL ASSISTANT) Vaginal Bleeding: Blood Loss Anemia, Cervicitis, Menstrual Bleeding, PID, Precipitous Hct, UTI, Vaginitis Mass / Lesion: Bartholin Abscess, Bartholin Cyst, Other (uterine fibroids) Vaginal Discharge: Foreign Body, Physiologic Discharge, PID X-Ray, Labs, Meds, VS Vital Signs Date Time Temp Pulse Resp B/P (MAP) Pulse Ox O2 Delivery O2 Flow Rate FiO2 09/18/24 23:25 98 19 98 Room Air* 0 21 09/18/24 23:25 98.2 98 19 130/84 (99) 100 98.2 09/18/24 19:45 98.7 101 18 134/78 (96) 100 Lab Test 09/18/24 20:00 Range/Units White Blood Count 8.3 4.4-10.8 10^3/uL Red Blood Count 2.71 L 4.0-5.20 10^6/uL Hemoglobin 8.3 L 12.2-16.2 g/dL Hematocrit 25.6 L 36.0-46.0 % Mean Corpuscular Volume 94.4 80.0-100.0 fL Mean Corpuscular Hemoglobin 30.6 28.0-32.0 pg Mean Corpuscular Hemoglobin Concent 32.4 32.0-36.0 g/dL Red Cell Distribution Width 19.7 H 11.8-14.3 % Platelet Count 313 140-450 10^3/uL Mean Platelet Volume 8.5 6.9-10.8 fL Neutrophils (%) (Auto) 51.4 37.0-80.0 % Lymphocytes (%) (Auto) 40.5 10.0-50.0 % Monocytes (%) (Auto) 5.9 0.0-12.0 % Eosinophils (%) (Auto) 1.7 0.0-7.0 % Basophils (%) (Auto) 0.5 0.0-2.0 % Neutrophils # (Auto) 4.2 1.6-8.6 10 ^3/uL Lymphocytes # (Auto) 3.3 0.4-5.4 10 ^3/uL Monocytes # (Auto) 0.5 0-1.3 10 ^3/uL Eosinophils # (Auto) 0.1 0-0.8 10 ^3/uL Basophils # (Auto) 0 0-0.2 10 ^3/uL Nucleated Red Blood Cells 0.2 % Sodium Level 143 136-145 mmol/L Potassium Level 3.5 3.5-5.1 mmol/L Chloride Level 109 H 98-107 mmol/L Carbon Dioxide Level 27 20-31 mmol/L Anion Gap 7 5-15 Blood Urea Nitrogen 12 9-23 mg/dL Creatinine 1.07 H 0.550-1.02 mg/dL Glomerular Filtration Rate Calc 66 >90 mL/min BUN/Creatinine Ratio 11.2 10.0-20.0 Serum Glucose 140 H 74-106 mg/dL Calcium Level 9.3 8.7-10.4 mg/dL Total Bilirubin 0.3 0.2-1.0 mg/dL Aspartate Amino Transferase (AST) 21 13-40 U/L Alanine Aminotransferase (ALT) 44 H 7-40 U/L Alkaline Phosphatase 53 46-116 U/L Total Protein 6.4 5.7-8.2 g/dL Albumin 4.2 3.2-4.8 g/dL [place] [address] Ph: [phone] DIAGNOSTIC IMAGING Diagnostic Imaging Report : [id number] Signed PATIENT: LEXIS MCKEON ACCT: [id number] UNIT: [id number] : 1980 LOC: ER ROOM / BED: / AGE / SEX: 44 / F ADM STATUS: REG ER SERVICE 10 ORDERING PHYSICIAN: MANASA MONTALVO MD PROCEDURE(s): PELUS - PELVIC REASON: Vaginal Bleeding, Pelvic pain, ? organ prolapse ORDER NUMBER(s): [id number], ACCESSION NUMBER(s): [id number] EXAM: US PELVIC CLINICAL HISTORY: Vaginal Bleeding, Pelvic pain, organ prolapse TECHNIQUE: Transabdominal and transvaginal ultrasound of the pelvis with color Doppler flow as clinically indicated. COMPARISON: US PELVIC on DOS: 09/05/24 Findings: Same-day quantitative beta-hCG is not available. Uterus measures 10.3x 4.8 x 5.5 cm in size with relatively homogeneous echotexture and normal contours. 4.4 x 3.8 x 4.9 cm hyperechoic, vascular lesion along the lower uterine segment/cervix. Endometrial thickness measures 0.6 cm with smooth contour. Bilateral ovaries not visualized. No free fluid in the cul-de-sac. Impression: 1. 4.9 cm vascular lesion in the lower uterine segment/cervix. Recommend direct visualization and contrast enhanced MRI for further evaluation. 2. Bilateral ovaries not visualized. ATED BY: CHAY,ABIGAIL E DO DICTATED DATE/TIME: 09/18/242112 SIGNED BY: ABIGAIL BURROWS E SIGNED DATE/TIME: 09/18/242112 CC: Time of 1ST Reevaluation: 22:10 Reevaluation 1ST: Unchanged Patient Education/Counseling: Diagnosis, Treatment Family Education/Counseling: Diagnosis, Treatment Departure 1 Departure Time of Disposition: 22:50 Impression: Primary Impression: Dysfunctional uterine bleeding Disposition: HOME / SELF CARE / HOMELESS Condition: Stable Additional Instructions: INSTRUCCIONES DE DEMARCO DE Urgencias Instrucciones: Abigail atentamente todas las instrucciones proporcionadas en kristopher paquete. Acude a tu tori con el gineclogo. En kristopher paquete se encuentra fer copia de kay informe de ultrasonido. Llvalo a tu gineclogo. Aunque le hayan dado el demarco del Departamento de Emergencias, esto no significa que tenga un "certificado de buena susu". Hoy no se grant realizado ningn diagnstico definitivo para geneva sntomas. Es posible que ests en proceso de desarrollar fer enfermedad grave. Es por eso que debe regresar al servicio de urgencias sin falta si presenta algn sntoma nuevo o que empeora (especialmente si geneva sntomas incluyen dolor en el pecho, dificultad para respirar, dolor abdominal, fiebre, dolor de maddie, confusin, dificultad para suri o caminar). Tambin es muy importante que consulte a un mdico de atencin primaria dentro de los prximos 3 a 5 valenzuela para realizar un seguimiento. Si no puede conseguir fer tori, regrese al servicio de urgencias para fer nueva evaluacin. PATIENT: LEXIS MCKEON ACCT: [id number] UNIT: [id number] : 1980 LOC: ER ROOM / BED: / AGE / SEX: 44 / F ADM STATUS: REG ER SERVICE 10 ORDERING PHYSICIAN: MANASA MONTALVO MD PROCEDURE(s): PELUS - PELVIC REASON: Vaginal Bleeding, Pelvic pain, ? organ prolapse ORDER NUMBER(s): [id number], ACCESSION NUMBER(s): [id number] EXAM: US PELVIC CLINICAL HISTORY: Vaginal Bleeding, Pelvic pain, organ prolapse TECHNIQUE: Transabdominal and transvaginal ultrasound of the pelvis with color Doppler flow as clinically indicated. COMPARISON: US PELVIC on DOS: 09/05/24 Findings: Same-day quantitative beta-hCG is not available. Uterus measures 10.3x 4.8 x 5.5 cm in size with relatively homogeneous echotexture and normal contours. 4.4 x 3.8 x 4.9 cm hyperechoic, vascular lesion along the lower uterine segment/cervix. Endometrial thickness measures 0.6 cm with smooth contour. Bilateral ovaries not visualized. No free fluid in the cul-de-sac. Impression: 1. 4.9 cm vascular lesion in the lower uterine segment/cervix. Recommend direct visualization and contrast enhanced MRI for further evaluation. 2. Bilateral ovaries not visualized. ATED BY: ABIGAIL BURROWS DO DICTATED DATE/TIME: 09/18/242112 Comments 44-year-old female with dysfunctional uterine bleeding. H&H stable. Advised patient to follow up with balling head tender for abnormal ultrasound finding. Patient is well-appearing, nontoxic, felt stable for discharge home. Advised to return to the emergency department with any new, worsening or concerning symptoms. Critical Care Note Critical Care Time?: No Stability Stability form required: No Heart Score Heart Score: Heart Score Response (Comments) Value History N/A 0 EKG N/A 0 Age N/A 0 Risk Factors N/A 0 Troponin N/A 0 Total 0 I personally scribed for MANASA MONTALVO MD ([email or web address]) on 09/18/24 at 21:47. Electronically submitted by Levi Amin ([email or web address]). MANASA MONTALVO MD Sep 18, 2024 21:47
[2024-09-18] MEDS: traMADol HCL 50 MG TAB PO ONE (23:22)
[2024-09-18] MEDS: KETOROLAC TROMETH 30 MG/ML 1ML VIAL IM ONE (23:22)
[2024-09-18 23:25] VITALS: BP 130/84; PULSE 98; RESP 19; TEMP 98.2; O2SAT 98
== END 2024-09-18 23:36 | disposition home or self-care (01) ==
LOC: ER 19:21
DX: N93.8 Other specified abnormal uterine and vaginal bleeding (principal); R10.2 Pelvic and perineal pain; N94.6 Dysmenorrhea, unspecified; Z98.890 Other specified postprocedural states
CPT/HCPCS: 36415; 76856; 80053; 81001; 85025; 86850; 86900; 86901

== ENCOUNTER 2024-10-26 13:51 | Inpatient (IN) | payer MEDICAID ==
[~2024-10-26] VITALS: Ht 165.1 cm; Wt 94.1 kg
[2024-10-26 14:29] VITALS: BP 147/53; PULSE 84; RESP 16; O2SAT 100
--- NOTE | 2024-10-26 15:07 | ED.PDOC ---
History of Present Illness HPI Comments 44y F who presents to the ED for chief complaint of abnormal labs. Pt states she had blood draw yesterday and states today AM, received call from PCP telling her to come to local ED for low hemoglobin. Pt states she does have history of heavy periods and states she last had bleeding 1 days prior. Pt states she has previously been to [facility] for similar symptoms and states she was transfused 09/05/24. Pt now in the ED, states she is feeling tired with associated malaise and headache. Pt states she has seen OB in the past and told she has menorrhagia and uterine fibroids and states she had follow up appt 12/04/24. Pt otherwise denies any other symptoms at this time. Chief Complaint: Abnormal LAB's Time Seen by MD: 15:06 Primary Care Provider: [facility] Reviewed Notes: Nurses Notes, Medications, Allergies Allergies: Coded Allergies: NO KNOWN ALLERGIES (Unverified , 05/04/21) Home Meds Active Scripts Cephalexin Monohydrate (Cephalexin) 500 Mg Cap, 500 MG PO TID for 5 Days, #15 CAP Prov:SHEILA GLASS RESIDENT 09/06/24 Ferrous Sulfate (FERROUS SULFATE) 325 Mg Tb, 325 MG PO DAILY for 30 Days, #30 TAB 1 Refill Prov:SHEILA GLASS RESIDENT 09/06/24 Oseltamivir Phosphate (Tamiflu) 75 Mg Cap, 75 MG PO BID for 4 Days, #8 CAP Prov:SHEILA GLASS RESIDENT 09/06/24 Ibuprofen (Ibuprofen) 800 Mg Tab, 1 TAB PO TID PRN, #30 TAB 0 Refills Prov:MALLORY DOWELL 10/12/22 Cyclobenzaprine Hcl (Cyclobenzaprine Hcl) 5 Mg Tab, 1 TAB PO QPM PRN, #14 TAB 0 Refills Prov:MALLORY DOWELL 10/12/22 Information Source: Patient Mode of Arrival: Ambulatory Severity: Moderate Timing: Hours Duration: Since onset Prehospital treatment: None Medication Refill: For: Other (abnormal labs) Past Medical History PAST MEDICAL HISTORY: Anemia Past Medical History (Other): Fibroid uterus Surgical History: [employer] History: Uterine Fibroids Family History Family History: Reviewed,noncontributory to illness Social History Smoker: Non-Smoker Alcohol: Denies ETOH Use Drugs: Denies Drug Use Lives In: Home Constitutional: reports: fatigue, malaise, weakness; denies: chills, fever, sweats, others EENTM: denies: blurred vision, double vision, ear bleeding, ear discharge, ear drainage, ear pain, ear ringing, eye pain, eye redness, hearing loss, mouth pain, mouth swelling, nasal discharge, nose bleeding, nose congestion, nose pain, photophobia, tearing, throat pain, throat swelling, voice changes, others Respiratory: denies: cough, hemoptysis, orthopnea, SOB at rest, shortness of breath, SOB with excertion, stridor, wheezing, others Cardiovascular: denies: chest pain, dizzy spells, diaphoresis, Dyspnea on exertion, edema, irregular heart beat, left arm pain, lightheadedness, palpitations, PND, syncope, others Gastrointestinal: denies: abdomen distended, abdominal pain, blood streaked bowels, constipated, diarrhea, dysphagia, difficulty swallowing, hematemesis, melena, nausea, poor appetite, poor fluid intake, rectal bleeding, rectal pain, vomiting, others Genitourinary: denies: abnormal vagina bleeding, burning, dyspareunia, dysuria, flank pain, frequency, hematuria, incontinence, pain, , vagina discharge, urgency, others Neurological: reports: headache; denies: dizziness, fainting, left sided numbness, left sided weakness, numbness, paresthesia, pre-existing deficit, right sided numbness, right sided weakness, seizure, speech problems, tingling, tremors, weakness, others Musculoskeletal: denies: back pain, gout, joint pain, joint swelling, muscle pain, muscle stiffness, neck pain, others Integumetry: denies: bruises, change in color, change in hair/nails, dryness, laceration, lesions, lumps, rash, wounds, others Allergic/Immunocompromised: denies: Difficulty Healing, Frequent Infections, Hives, Itching, others Hematologic/Lymphatic: denies: anemia, blood clots, easy bleeding, easy bruising, swollen glands, others Endocrine: denies: excessive hunger, excessive sweating, excessive thirst, excessive urination, flushing, intolerance to cold, intolerance to heat, unexplained weight gain, unexplained weight loss, others Psychiatric: denies: anxiety, bipolar disorder, depression, hopeless, panic disorder, schizophrenia, sleepless, suicidal, others All Other Systems: Reviewed and Negative Physical Exam General Appearance: Moderate Distress HEENT: Normal ENT Inspection, Pharynx Normal, TMs Normal Neck: Full Range of Motion, Non-Tender, Normal, Normal Inspection Respiratory: Chest Non-Tender, Lungs Clear, No Accessory Muscle Use, No Respiratory Distress, Normal Breath Sounds Cardiovascular: No Edema, No JVD, No Murmur, No Gallop, Normal Peripheral Pulses, Regular Rate/Rhythm Breast Exam: Deferred Gastrointestinal: No Organomegaly, Non Tender, No Pulsatile Mass, Normal Bowel Sounds, Soft Genitalia: Deferred Pelvic: Deferred Rectal: Deferred Extremities: No calf tenderness, Normal capillary refill, Normal inspection, Normal range of motion, Non-tender, No pedal edema Musculoskeletal : Apperance: Normal Neurologic: Alert, branch office administrator II-XII nml as Tested, No Motor Deficits, Normal Affect, Normal Mood, No Sensory Deficits Cerebellar Function: Normal Reflexes: Normal Skin: Dry, Normal Color, Warm Lymphatic: No Adenopathy Was a procedure done? Was a procedure done?: No Differential Dx Considerations may include: iron deficiency anemia, menorrhagia, X-Ray, Labs, Meds, VS Vital Signs Date Time Temp Pulse Resp B/P (MAP) Pulse Ox O2 Delivery O2 Flow Rate FiO2 10/26/24 14:29 98.4 84 16 147/53 (84) 100 Lab Test 10/26/24 19:42 10/26/24 16:19 Range/Units Urine Color Colorless Yellow Urine Clarity Clear Clear Urine pH 6.0 5.0-9.0 Urine Specific [place] 1.006 1.001-1.035 Urine Protein Negative Negative Urine Ketones Negative Negative Urine Blood Trace H Negative /uL Urine Nitrite 2+ H Negative Urine Bilirubin Negative Negative Urine Urobilinogen Normal Negative mg/dL Urine Leukocyte Esterase 2+ Negative /uL Urine RBC 2 0 - 4 /hpf Urine Microscopic WBC 12 H 0-5 /HPF Urine Squamous Epithelial Cells Few <5 /hpf Urine Bacteria Few H None Seen /hpf Urine Glucose Normal Normal mg/dL White Blood Count 6.9 4.4-10.8 10^3/uL Red Blood Count 2.44 L 4.0-5.20 10^6/uL Hemoglobin 7.7 L 12.2-16.2 g/dL Hematocrit 24.0 L 36.0-46.0 % Mean Corpuscular Volume 98.4 80.0-100.0 fL Mean Corpuscular Hemoglobin 31.6 28.0-32.0 pg Mean Corpuscular Hemoglobin Concent 32.2 32.0-36.0 g/dL Red Cell Distribution Width 14.6 H 11.8-14.3 % Platelet Count 349 140-450 10^3/uL Mean Platelet Volume 8.7 6.9-10.8 fL Neutrophils (%) (Auto) 64.1 37.0-80.0 % Lymphocytes (%) (Auto) 28.7 10.0-50.0 % Monocytes (%) (Auto) 5.8 0.0-12.0 % Eosinophils (%) (Auto) 1.0 0.0-7.0 % Basophils (%) (Auto) 0.4 0.0-2.0 % Neutrophils # (Auto) 4.4 1.6-8.6 10 ^3/uL Lymphocytes # (Auto) 2.0 0.4-5.4 10 ^3/uL Monocytes # (Auto) 0.4 0-1.3 10 ^3/uL Eosinophils # (Auto) 0.1 0-0.8 10 ^3/uL Basophils # (Auto) 0 0-0.2 10 ^3/uL Nucleated Red Blood Cells 0.1 % Prothrombin Time 10.4 9.3-11.8 sec Prothrombin Time INR 0.98 0.9-1.15 Activated Partial Thromboplast Time 24.7 24.5-34.5 SEC Sodium Level 143 136-145 mmol/L Potassium Level 3.6 3.5-5.1 mmol/L Chloride Level 107 98-107 mmol/L Carbon Dioxide Level 29 20-31 mmol/L Anion Gap 7 5-15 Blood Urea Nitrogen 12 9-23 mg/dL Creatinine 0.74 0.550-1.02 mg/dL Glomerular Filtration Rate Calc 103 >90 mL/min BUN/Creatinine Ratio 16.2 10.0-20.0 Serum Glucose 93 74-106 mg/dL Calcium Level 9.5 8.7-10.4 mg/dL The CBC shows a hemoglobin of 7.7 and hematocrit is 24 The platelets of 349 The chemistry panel is within normal limits The urine test is positive for UTI The patient was being given Rocephin 1 g IV piggyback We typed and screen the patient and at this time we did call Dr. French who is the OBGYN on-call. The patient will be transfused with 2 units of packed red blood cells and then should be discharged home At this time the patient was not actively bleeding but we are concerned that further bleeding we will cause the patient to be comes significantly anemic We have discussed the findings with the patient. The patient was being signed out to Dr. Langley. Time of 1ST Reevaluation: 15:35 Reevaluation 1ST: Unchanged Patient Education/Counseling: Diagnosis, Treatment, Prognosis Family Education/Counseling: No Family Present Departure 1 Departure Time of Disposition: 20:53 Impression: Primary Impression: Dysfunctional uterine bleeding Additional Impression: Blood loss anemia Disposition: 30 STILL A PATIENT Condition: Fair Critical Care Note Critical Care Time?: No Stability Stability form required: No Heart Score Heart Score: Heart Score Response (Comments) Value History N/A 0 EKG N/A 0 Age N/A 0 Risk Factors N/A 0 Troponin N/A 0 Total 0 I personally scribed for MANUEL ROJO MD ([email or web address]) on 10/26/24 at 15:07. Electronically submitted by Levi Amin ([email or web address]). MANUEL ROJO MD Oct 26, 2024 15:07
[2024-10-26 17:15] LABS: Basophils # (auto) 0 10 ^3/uL (0-0.2); Basophils % (auto) 0.4 % (0.0-2.0); Eosinophils # (auto) 0.1 10 ^3/uL (0-0.8); Hemoglobin 7.7 g/dL (12.2-16.2); Lymphocytes % (auto) 28.7 % (10.0-50.0); Mean Corpuscular Hemoglobin 31.6 pg (28.0-32.0); Mean Corpuscular Hgb Conc. 32.2 g/dL (32.0-36.0); Mean Corpuscular Volume 98.4 fL (80.0-100.0); Monocytes # (auto) 0.4 10 ^3/uL (0-1.3); Monocytes % (auto) 5.8 % (0.0-12.0); Neutrophils # (auto) 4.4 10 ^3/uL (1.6-8.6); Neutrophils % (auto) 64.1 % (37.0-80.0); Nucleated Red Blood Cells % 0.1 %; Platelet Count (auto) 349 10^3/uL (140-450); Red Blood Cells 2.44 10^6/uL (4.0-5.20); Red Cell Distribution Width 14.6 % (11.8-14.3); White Blood Cell 6.9 10^3/uL (4.4-10.8)
[2024-10-26 17:19] LABS: Anion Gap 7 (5-15); Carbon Dioxide 29 mmol/L (20-31); Potassium 3.6 mmol/L (3.5-5.1); Sodium 143 mmol/L (136-145)
[2024-10-26 17:20] LABS: Calcium 9.5 mg/dL (8.7-10.4)
[2024-10-26 17:25] LABS: BUN/Creatinine Ratio 16.2 (10.0-20.0); Blood Urea Nitrogen 12 mg/dL (9-23); Chloride 107 mmol/L (98-107); Glucose 93 mg/dL (74-106); INR 0.98 (0.9-1.15); Partial Thromboplastin Time 24.7 SEC (24.5-34.5); Prothrombin Time 10.4 sec (9.3-11.8)
[2024-10-26 20:25] LABS: Urine Bacteria FEW /hpf (None Seen); Urine Blood TRACE /uL (Negative); Urine Clarity Clear (Clear); Urine Color Colorless (Yellow); Urine Protein, UAD Negative (Negative); Urine Specific Gravity 1.006 (1.001-1.035); Urine Squamous Epithelial Cell FEW /hpf (<5); Urine Urobilinogen Normal (Negative); Urine WBC 12 /HPF (0-5)
[2024-10-26] MEDS ORDERED: DOCUSATE SOD 100 MG CAP PO PRN (23:30)
[2024-10-26] MEDS ORDERED: HYDROcodone-ACET 5/325MG TAB PO PRN (23:30)
[2024-10-26] MEDS ORDERED: ONDANSETRON HCL 4 MG/2 ML VIAL IV PRN (23:30)
[2024-10-26] MEDS ORDERED: ACETAMINOPHEN 325 MG TAB PO PRN (23:30)
--- NOTE | 2024-10-26 23:40 | DVHHP2 ---
History of Present Illness Reason for Visit: Blood loss anemia History of Present Illness The patient is a 44-year-old female with past medical history of uterine fibroids and anemia who presented to [facility] ED for evaluation of abnormal labs. Patient reports she had blood draw yesterday and received a called today telling her PCP to come to the ED for low hemoglobin. Patient states she has previously been to for similar symptoms and states she was transfused 09/05/24. Patient was seen and evaluated in the ED, laboratory data shows WBC 6.9, hemoglobin 7.7, hematocrit 24.0, platelets 349, sodium 143, potassium 3.6, BUN 12, creatinine 0.74, GFR 103, glucose 93, calcium nine five, blood pressure 147/53, pulse 84, temperature 98.4 F, O2 saturation 100% on room air. Patient will receive 1 units of PRBC, please see medication orders section in the computer. On my assessment, patient denied chest pain, no headache, no dizziness, no diaphoresis, no shortness of breaths, no nausea, no vomiting, no fever, no chills. Patient was admitted for further evaluation and medical management. Past Medical History Anemia, Fibroid uterus Past Surgical History Family History Reviewed, noncontributory to the management of this case. Past Social History The patient lives at home, denies smoking, alcohol or illicit drugs abuse. Review of Systems Constitutional: Yes: Weakness, Malaise, Other (Fatigue); No: Fever, Chills, Sweats Eyes: No: Pain, Vision change, Conjunctivae inflammation, Eyelid inflammation, Other, Redness ENT: No: Ear pain, Ear discharge, Nose pain, Nose discharge, Nose congestion, Mouth pain, Mouth swelling, Throat pain, Throat swelling, Other Respiratory: No: Cough, Dry, Shortness of breath, SOB with excertion, Wheezing, Hemoptysis, Pleuritic Pain, Sputum, Wheezing, Other Cardiovascular: No: Chest Pain, Palpitations, Orthopnea, Paroxysmal Noc. Dyspnea, Edema, Lt Headedness, Other Gastrointestinal: No: Nausea, Vomiting, Abdominal Pain, Diarrhea, Constipation, Melena, Hematochezia, Other Genitourinary: No Dysuria, No Frequency, No Incontinence, No Hematuria, No Retention, No Other Musculoskeletal: No: other, neck pain, shoulder pain, arm pain, back pain, hand pain, leg pain, foot pain Skin: No: Rash, Lesions, Jaundice, Bruising, Other Neurological: Other (Headache); No: Weakness, Numbness, Incoordination, Change in speech, Confusion, Seizures Allergies: Coded Allergies: NO KNOWN ALLERGIES (Unverified , 05/04/21) Medications Current Medications Medications Dose Ordered Sig/Branden Route Start Time Stop Time Status Last Admin Dose Admin Ceftriaxone Sodium 50 ml @ 100 mls/hr DAILY@09 IV 10/27/24 09:00 UNV Sodium Chloride 10 ml Q8HR IV 10/27/24 06:00 UNV Acetaminophen/ Hydrocodone Bitart 1 tab Q4HP PRN PO 10/26/24 23:30 UNV Ondansetron HCl 4 mg Q4HP PRN IV 10/26/24 23:30 UNV Docusate Sodium 100 mg BIDPRN PRN PO 10/26/24 23:30 UNV Acetaminophen 650 mg Q6HP PRN PO 10/26/24 23:30 UNV Exam Vital Signs Vital Signs Date Time Temp Pulse Resp B/P (MAP) Pulse Ox O2 Delivery O2 Flow Rate FiO2 10/26/24 14:29 98.4 84 16 147/53 (84) 100 General Appearance: Alert, Oriented X3, Cooperative, No acute distress HEENT: Atraumatic, PERRLA, EOMI, Mucous membr. moist/pink Respiratory: Clear to auscultation, Normal air movement Cardiovascular: Regular rate, Normal S1, Normal S2, No murmurs Abdominal: Normal bowel sounds, Soft, No tenderness, No hepatospenomegaly, No masses Extremities: No clubbing, No cyanosis, No edema, Normal pulses, No tenderness/swelling Skin: No rashes, No breakdown, No significant lesion Neuro: Normal gait, Normal speech, Strength at 5/5 X4 ext, Normal tone, Sensation intact, Cranial nerves 3-12 NL, Reflexes 2+ Psych/Mental Status: Mental status NL, Mood NL Labs/Xrays Labs Test 10/26/24 19:42 10/26/24 16:19 Range/Units Urine Color Colorless Yellow Urine Clarity Clear Clear Urine pH 6.0 5.0-9.0 Urine Specific [place] 1.006 1.001-1.035 Urine Protein Negative Negative Urine Ketones Negative Negative Urine Blood Trace H Negative /uL Urine Nitrite 2+ H Negative Urine Bilirubin Negative Negative Urine Urobilinogen Normal Negative mg/dL Urine Leukocyte Esterase 2+ Negative /uL Urine RBC 2 0 - 4 /hpf Urine Microscopic WBC 12 H 0-5 /HPF Urine Squamous Epithelial Cells Few <5 /hpf Urine Bacteria Few H None Seen /hpf Urine Glucose Normal Normal mg/dL White Blood Count 6.9 4.4-10.8 10^3/uL Red Blood Count 2.44 L 4.0-5.20 10^6/uL Hemoglobin 7.7 L 12.2-16.2 g/dL Hematocrit 24.0 L 36.0-46.0 % Mean Corpuscular Volume 98.4 80.0-100.0 fL Mean Corpuscular Hemoglobin 31.6 28.0-32.0 pg Mean Corpuscular Hemoglobin Concent 32.2 32.0-36.0 g/dL Red Cell Distribution Width 14.6 H 11.8-14.3 % Platelet Count 349 140-450 10^3/uL Mean Platelet Volume 8.7 6.9-10.8 fL Neutrophils (%) (Auto) 64.1 37.0-80.0 % Lymphocytes (%) (Auto) 28.7 10.0-50.0 % Monocytes (%) (Auto) 5.8 0.0-12.0 % Eosinophils (%) (Auto) 1.0 0.0-7.0 % Basophils (%) (Auto) 0.4 0.0-2.0 % Neutrophils # (Auto) 4.4 1.6-8.6 10 ^3/uL Lymphocytes # (Auto) 2.0 0.4-5.4 10 ^3/uL Monocytes # (Auto) 0.4 0-1.3 10 ^3/uL Eosinophils # (Auto) 0.1 0-0.8 10 ^3/uL Basophils # (Auto) 0 0-0.2 10 ^3/uL Nucleated Red Blood Cells 0.1 % Prothrombin Time 10.4 9.3-11.8 sec Prothrombin Time INR 0.98 0.9-1.15 Activated Partial Thromboplast Time 24.7 24.5-34.5 SEC Sodium Level 143 136-145 mmol/L Potassium Level 3.6 3.5-5.1 mmol/L Chloride Level 107 98-107 mmol/L Carbon Dioxide Level 29 20-31 mmol/L Anion Gap 7 5-15 Blood Urea Nitrogen 12 9-23 mg/dL Creatinine 0.74 0.550-1.02 mg/dL Glomerular Filtration Rate Calc 103 >90 mL/min BUN/Creatinine Ratio 16.2 10.0-20.0 Serum Glucose 93 74-106 mg/dL Calcium Level 9.5 8.7-10.4 mg/dL Assessment/Plan Assessment/Plan Blood loss anemia Urinary tract infection Plan 1. Admit to telemetry unit 2. Breathing treatment 3. Pain control management 4. IV antibiotic management 5. Management of fluids and electrolytes 6. Consultation for hospitalist 7. Diagnostic test chest x-ray 8. DVT prophylaxis on SCDs 9. Repeat labs CBC, CMP in a.m. 10. Home medication reviewed 11. Continue with current medical management 12. Treatment plan discussed with patient and RN. Patient verbalized u nderstanding. Plan discussed with: Patient, Other (RN) My Orders Orders - HARINI SMITH DNP Procedure Category Date Status Time Urine Bacterial JOANNE 10/26/24 In Process Culture 23:28 Ceftriaxone 1gm/50ml PHA 10/27/24 Logged D5w (Rocephin) 09:00 Ceftriaxone 1gm/50ml PHA 10/26/24 Logged D5w (Rocephin) 23:30 Allergies DEQUAN 10/26/24 In Process 23:28 Code Status CODE 10/26/24 Transmitted 23:28 Sodium Chloride Lock PHA 10/27/24 Logged (Saline Lock Ns) 06:00 Oxygen Per Hour RT 10/26/24 Transmitted 23:28 Hydrocodone-Acet PHA 10/26/24 Logged 5/325mg Tab ([place]ingle 23:30 Ondansetron Hcl PHA 10/26/24 Logged (Zofran) 23:30 Docusate Sodium PHA 10/26/24 Logged Capsule (Colace 23:30 Complete Blood Count LAB 10/27/24 Verified 04:00 Comprehensive LAB 10/27/24 Verified Metabolic Panel 04:00 Cardiac DIET 10/27/24 Transmitted Diet-2gna,Lofat,Lochol Breakfast Condition: Serious DEQUAN 10/26/24 In Process 23:28 Acetaminophen Tablet PHA 10/26/24 Logged (Tylenol Tablet) 23:30 Bedrest With Bathroom DEQUAN 10/26/24 In Process Privileg 23:28 Sequential DEQUAN 10/26/24 In Process Compression Device Problem List: (1) Blood loss anemia (2) UTI (urinary tract infection) Date of Service: Oct 26, 2024 Billing Provider: HARINI SMITH DNP Common Visit Codes: 58222-XNMTJCM INP/OBS CARE (HIGH) HARINI SMITH DNP Oct 26, 2024 23:40
[2024-10-26] MEDS ORDERED: MORPHINE SULFATE INJ 2 MG/ml SYRG IV PRN (23:45)
[2024-10-26] MEDS ORDERED: NITROGLYCERIN 0.4 MG SL TAB SL PRN (23:45)
[2024-10-27] MEDS ORDERED: cefTRIAXone 1GM/50ML D5W 50 ML IV ONE
[2024-10-27] MEDS ORDERED: SODIUM CHLOR 0.9% PF (SALINE LOCK) 10ML VIAL/SYR IV SCH (06:00)
[2024-10-28] MEDS ORDERED: cefTRIAXone 1GM/50ML D5W 50 ML IV SCH
== END 2024-10-27 01:55 | disposition left against medical advice (07) | DRG 532 ==
LOC: ER 13:51 → OVERFLOW 23:39
PROVIDERS: ADMIT Nurse Practitioner Family; ATTEND Nurse Practitioner Family
DX: N92.0 Excessive and frequent menstruation with regular cycle (principal); D62 Acute posthemorrhagic anemia; D25.9 Leiomyoma of uterus, unspecified; N93.8 Other specified abnormal uterine and vaginal bleeding; Z53.29 Procedure and treatment not carried out because of patient's decision for other reasons; N39.0 Urinary tract infection, site not specified; Z79.1 Long term (current) use of non-steroidal anti-inflammatories (NSAID); Z98.891 History of uterine scar from previous surgery; Z79.899 Other long term (current) drug therapy
CPT/HCPCS: 36415; 80048; 81001; 85025; 85610; 85730; 86850; 86870; 86880; 86900; 86901; 86905; 86906; 86922; 87086; 87088; 87186; G0378